=== PATIENT | male | born 1955 | race Caucasian/White ===

== ENCOUNTER 2024-08-18 13:43 | Emergency (ER) | payer MEDICAID ==
[~2024-08-18] VITALS: Ht 182.9 cm; Wt 72.8 kg
[2024-08-18 13:45] VITALS: BP 167/93; PULSE 105; RESP 16; TEMP 99.8; O2SAT 97
--- NOTE | 2024-08-18 14:18 | Physician Documentation ---
History of Present Illness ~ Chief Complaint: Foot pain Stated Complaint: L FOOT PAIN Time Seen by MD: 14:04 Primary Medical Doctor: TRENT Source: patient Mode of Arrival: POV Exam Limitations: no limitations HPI 69 yo male with left foot pain, redness and swelling sp mechanical fall with scrapped foot getting worse. Injury happened 2 weeks ago. denies fever Medication Reconciliation Allergies: Coded Allergies: No Known Allergies (Unverified , 04/10/09) Scheduled Cephalexin*Monohydrate* (Keflex*), 1 CAP PO Q12H Scheduled PRN Ibuprofen (Ibu), 1 TAB PO Q4HPRN PRN for pain Past Medical History Past Medical History: No Pertinent History Past Surgical History: no surgical history Smoking Status: Current every day smoker Lives In: Homeless, Other Occupation: unemployed Review of Systems All Other Systems at this time: Reviewed and Negative Musculoskeletal: Reports: see HPI Physical Exam Vital Signs: RN Vital Signs have been reviewed: Yes, Temperature: 99.8, Source: Temporal, Heart Rate: 105, Respiratory Rate: 16, BP: 167/93, Pulse Oximetry: 97, Weight: 72.850 Physical Exam General: Alert, no apparent distress. HEENT: PERRL, EOMI, no injection, moist mucous membranes. Neck: Full range of motion. Respiratory: Lungs clear, no respiratory distress. Chest: No accessory muscle use. Cardiovascular: Regular rate and rhythm, no murmurs. Extremities: right foot with erythema and swelling, tender to palpate superficial abrasion to dorsal aspect of foot. no deformities Neurologic: Oriented x4. Psychiatric: Normal mood and affect. Skin: Normal color, warm and dry. Progress Results/Orders Results/Orders Completed Orders - BHAVANI MARTINO NP Cephalexin Capsule (Keflex Capsule) (08/18/24 15:30) Vital Signs 08/18/24 13:45 Temp 99.8 Pulse 105 Resp 16 B/P (MAP) 167/93 Pulse Ox 97 EKG/XRAY/CT/US/VASC/MRI Bone/Soft Tissue X-Ray (Ext.) : Additional Comment CLINICAL INDICATION: LEFT FOOT PAIN TECHNIQUE: 3 radiographic views of the left foot were obtained. Comparison: None FINDINGS/IMPRESSION: There is no evidence of acute fracture or dislocation. The visualized joint space is well maintained. The alignment is anatomical. There is no radiopaque foreign body. Medical Decision Making Findings Patient had history of an injury and abrasion with erythema swelling sensation circulation intact x-ray was negative for any osseous abnormality patient will be discharged with antibiotics treated for cellulitis General Diff Dx:Considerations: Include: Abrasion, Fracture, Sprain Foot Diff Dx:Considerations: Include: Abrasion, Arthritis, Cellulitis, Gout, Sprain Departure Time of Disposition: 15:19 Disposition: 01 HOME / SELF CARE / HOMELESS Impression: Primary Impression: Cellulitis Condition: Stable Discharge Instructions: Cellulitis Additional Instructions: wear boot for comfort and take antibiotics as prescribed, ice for comfort and rest. Monitor for new or worsening s/s infection and f/u with primary care Referrals: NO PRIMARY CARE PROVIDER (PCP) Prescriptions Ibuprofen (Ibu) 400 Mg Tablet 1 TAB PO Q4HPRN PRN for pain for 5 Days, #30 TAB 0 Refills NEEDED FOR PAIN Prov: BHAVANI MARTINO NP 08/18/24 Cephalexin*Monohydrate* (Keflex*) 500 Mg Capsule 1 CAP PO Q12H for 10 Days, #20 CAP Prov: BHAVANI MARTINO MECHANICAL INTERN 08/18/24 Education Educated: Patient Educated regarding: diagnosis, treatment, need for follow up Signature Scribe Signature: no scribe Attestation: The note accurately reflects work and decisions made by me.Bhavani Martino - PATRICK 08/18/24 15:27 BHAVANI MARTINO NP Aug 18, 2024 14:18
--- NOTE | 2024-08-18 14:27 | RADIOLOGY REPORT ---
CLINICAL INDICATION: LEFT FOOT PAIN TECHNIQUE: 3 radiographic views of the left foot were obtained. Comparison: None FINDINGS/IMPRESSION: There is no evidence of acute fracture or dislocation. The visualized joint space is well maintained. The alignment is anatomical. There is no radiopaque foreign body.
[2024-08-18] MEDS ORDERED: IBUP-860 PO (15:26)
[2024-08-18] MEDS ORDERED: CEPH-585 PO (15:26)
== END 2024-08-18 16:02 | disposition home or self-care (01) ==
LOC: ER 13:43
DX: S90.812A Abrasion, left foot, initial encounter (principal); L03.116 Cellulitis of left lower limb; F17.200 Nicotine dependence, unspecified, uncomplicated; Z59.00 Homelessness unspecified; Z79.899 Other long term (current) drug therapy; Z56.0 Unemployment, unspecified; W18.39XA Other fall on same level, initial encounter; Y93.89 Activity, other specified; Y92.89 Other specified places as the place of occurrence of the external cause; Y99.8 Other external cause status
CPT/HCPCS: 73630; 99284; L3260

== ENCOUNTER 2024-08-23 17:40 | Emergency (ER) | payer MEDICAID ==
[~2024-08-23] VITALS: Ht 184.2 cm; Wt 96.4 kg
[~2024-08-23 17:40] MED LIST: CEPH-585 PO; IBUP-860 PO
[2024-08-23 17:44] VITALS: TEMP 97.6
--- NOTE | 2024-08-23 19:45 | Physician Documentation ---
History of Present Illness ~ Chief Complaint: Foot pain Stated Complaint: L FOOT PAIN Time Seen by MD: 19:43 Primary Medical Doctor: TRENT Mode of Arrival: POV HPI Patient presents to the emergency room with pain and swelling to his bilateral lower extremities left greater than right. He was seen here five days ago and diagnosed with cellulitis and rooms put on Keflex with no improvement. No fevers. No prior instances of swelling. Denies chest pain or shortness of breath. Tetanus witin 5 years: No (UNSURE) Medication Reconciliation Allergies: Coded Allergies: No Known Allergies (Unverified , 04/10/09) Scheduled Cephalexin*Monohydrate* (Keflex*), 1 CAP PO Q12H Scheduled PRN Ibuprofen (Ibu), 1 TAB PO Q4HPRN PRN for pain Past Medical History Past Medical History: No Pertinent History Past Surgical History: no surgical history Smoking Status: Never smoker Lives In: Homeless, Other Occupation: unemployed Review of Systems ROS All review of systems negative except as per HPI Physical Exam Vital Signs: Temperature: 97.6, Source: Temporal, Heart Rate: 82, Respiratory Rate: 18, BP: 142/61, Pulse Oximetry: 99, Weight: 96.360 Oxygen Flow Rate: 0 Physical Exam General: Patient is awake, alert, oriented x4 in no acute distress Head: Normocephalic and atraumatic. Eyes: Conjunctival normal. EOMI. PERRL. ENT: Mucous membranes moist. Neck: Supple, trachea is midline. Chest: Clear to auscultation bilaterally without rales, rhonchi, or wheezes. There is no accessory muscle use or retractions. Cardiac: RRR without murmurs, gallops, or rubs. Extremities: 2+ pitting edema to bilateral lower extremities left greater than right with associated tenderness to palpation increased erythema bilaterally Progress Results/Orders Results/Orders Orders - BJ FRENCH MD Vl Venous (08/23/24 19:53) Completed Orders - BJ FRENCH MD Tramadol Tablet (Ultram Tablet) (08/23/24 19:55) Cbc/Diff (08/23/24 19:53) PBNP (08/23/24 19:53) BMP (08/23/24 19:53) Hs Troponin I W Calculations (08/23/24 19:53) Vl Venous (08/23/24 19:53) Medications Received in ER Medications (Trade) Dose Ordered Sig/Flor Route PRN Reason Start Time Stop Time Status Last Admin Dose Admin (Ultram tablet) 50 mg ONCE ONCE PO 08/23/24 19:55 08/23/24 19:56 DC 08/23/24 19:59 50 MG Vital Signs 08/23/24 08/23/24 08/23/24 17:44 18:20 19:10 Temp 97.6 Pulse 102 82 Resp 18 18 18 B/P (MAP) 138/90 142/61 (88) Pulse Ox 97 99 O2 Flow Rate 0 Laboratory Tests Test 08/23/24 20:02 White Blood Count 7.9 Red Blood Count 3.93 L Hemoglobin 12.6 L Hematocrit 37.1 L Mean Corpuscular Volume 94.3 Mean Corpuscular Hemoglobin 31.9 H Mean Corpuscular Hemoglobin Concent 33.8 Red Cell Distribution Width 14.0 Platelet Count 178 Mean Platelet Volume 8.0 Neutrophils (%) (Auto) 80.4 H Lymphocytes (%) (Auto) 8.1 L Monocytes (%) (Auto) 8.4 Eosinophils (%) (Auto) 2.4 Basophils (%) (Auto) 0.7 Neutrophils # (Auto) 6.3 Lymphocytes # (Auto) 0.6 L Monocytes # (Auto) 0.7 Eosinophils # (Auto) 0.2 Basophils # (Auto) 0.1 CBC Comment Sodium Level 139 Potassium Level 3.4 L Chloride Level 107 Carbon Dioxide Level 27.1 Anion Gap 5 L Blood Urea Nitrogen 23 H Creatinine 1.11 H Estimated GFR/1.73 m2 66 BUN/Creatinine Ratio 20.7 H Glucose Level 115 H Calcium Level 8.5 Troponin I High Sensitivity 16 Pro-B-Type Natriuretic Peptide 202 H Albumin 3.0 L Chemistry Comments Medical Decision Making Findings Upon re-evaluation patient is erythema improved. Patient presented to the emergency room with pain and erythema to bilateral lower extremities left greater than right. Differentials include but are not limited to cellulitis, lymphedema, Miles's cyst, DVT, vascular insufficiency, renal failure, heart failure therefore emergent labs ordered which is reassuring for no kidney failure or heart failure. That has patient's erythema improved with keeping legs elevated do believe this is related to lymphedema he would not cellulitis. We will treat him with small course of Lasix along with instruc tions to keep feet elevated, salt restriction and compression stockings. ER precautions regarding worsening of symptoms or fevers discussed. Departure Disposition: HOME / SELF CARE / HOMELESS Impression: Primary Impression: Lymphedema Condition: Stable Discharge Instructions: Peripheral Edema Additional Instructions: Keep feet elevated, restrict salt intake, avoid the heat, compression stockings Referrals: NO PRIMARY CARE PROVIDER (PCP) Prescriptions Tramadol HCl (Tramadol HCl) 50 Mg Tablet 1 TAB PO Q12H PRN PRN for pain, #8 TAB Prov: BJ FRENCH MD 08/23/24 Furosemide* (Lasix*) 20 Mg Tablet 1 TAB PO BID, #6 TAB Prov: BJ FRENCH MD 08/23/24 Education Educated: Patient Educated regarding: diagnosis, treatment, need for follow up Signature Scribe Signature: No scribe Attestation: The note accurately reflects work and decisions made by me.Bj French MD 08/23/24 21:27 BJ FRENCH MD Aug 23, 2024 19:45
[2024-08-23 20:10] LABS: MEAN PLATELET VOLUME 8.0 FL (7.4-10.4); RED CELL DISTRIBUTION WIDTH 14.0 % (11.5-14.5)
[2024-08-23 20:33] LABS: CREATININE 1.11 MG/DL (0.60-1.10); PRO BRAIN NATRIURETIC PEPTIDE 202 PG/ML (0-125); TOTAL CARBON DIOXIDE 27.1 MMOL/L (24-32); eCRCL 72 ML/MIN; eGFR 66 ML/MIN
--- NOTE | 2024-08-23 21:18 | VASCULAR REPORT ---
LEFT LOWER EXTREMITY VENOUS DUPLEX REASON FOR EXAMINATION: Left lower extremity pain and edema. Left calf swelling. Pain. COMPARISON: None TECHNIQUE: Using real-time freeze-frame technique with a high-frequency transducer, multiple longitu dinal and transverse sections were obtained. Simultaneous color flow and spectral Doppler imaging wa s performed. FINDINGS: There is good visualization of the deep venous system with no intraluminal filling defects identified. Normal venous compressibility is seen and there is flow augmentation. The contralateral (right) common femoral vein is compressible and free of intraluminal thrombus and demonstrates abel l flow and augmentation. Color flow Doppler imaging is unremarkable. The left greater saphenous vein was also studied and was compressible and free of intraluminal thromb us. There is edema within the soft tissues of the left calf. IMPRESSION: NO EVIDENCE OF DEEP VENOUS THROMBOSIS.
[2024-08-23] MEDS ORDERED: TRAM50TA2 PO (21:26)
[2024-08-23] MEDS ORDERED: FURO-150 PO (21:26)
[2024-08-23 21:45] VITALS: BP 134/82; PULSE 84; RESP 18; O2SAT 100
== END 2024-08-23 21:47 | disposition home or self-care (01) ==
LOC: ER 18:47
DX: I89.0 Lymphedema, not elsewhere classified (principal); M79.672 Pain in left foot; Z59.00 Homelessness unspecified; Z79.899 Other long term (current) drug therapy; Z56.0 Unemployment, unspecified
CPT/HCPCS: 36415; 80048; 83880; 84484; 85025; 93971; 99284

== ENCOUNTER 2024-08-27 09:45 | Emergency (ER) | payer MEDICAID ==
[~2024-08-27] VITALS: Ht 182.9 cm; Wt 85.0 kg
[~2024-08-27 09:45] MED LIST changes: +FURO-150 PO; +TRAM50TA2 PO
[2024-08-27 09:55] VITALS: TEMP 99
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
--- NOTE | 2024-08-27 10:28 | ELECTROCARDIOGRAPH REPORT ---
[facility] Test Date: 2024-08-27 Test Time: 10:26:00 Pat Name: ELHAM TUTTLE Department: [facility]- Patient ID: [id number] Room: Gender: M Development Executive: : 1955 Requested By: JAYDE WHALEN Order Number: [id number] Reading MD: Dr. Vu Moody Measurements Intervals [place] Rate: 86 P: 85 DE: 50 QRS: 77 QRSD: 95 T: 64 QT: 390 QTc: 467 Interpretive Statements Sinus rhythm Ventricular premature complex Short DE interval Abnormal R-wave progression, early transition Electronically Signed On 08-30-2024 19:16:[address] Vu Moody Please click the below link to view image of tracing.
[2024-08-27 10:47] LABS: MEAN PLATELET VOLUME 8.2 FL (7.4-10.4); RED CELL DISTRIBUTION WIDTH 13.8 % (11.5-14.5)
--- NOTE | 2024-08-27 10:49 | RADIOLOGY REPORT ---
CHEST RADIOGRAPH Indication: CP Technique: Single frontal view of the chest was obtained COMPARISON: None FINDINGS: Lines and Tubes: None Lungs: Clear Pleura: No effusion. No pneumothorax. Cardiomediastinal contours: Unremarkable Bones: Unremarkable IMPRESSION: No acute disease.
[2024-08-27 11:08] LABS: CREATININE 1.20 MG/DL (0.60-1.10); PRO BRAIN NATRIURETIC PEPTIDE 119 PG/ML (0-125); TOTAL CARBON DIOXIDE 25.7 MMOL/L (24-32); eCRCL 66 ML/MIN; eGFR 60 ML/MIN
[2024-08-27] MEDS ORDERED: SULF1TAB49 PO (12:24)
[2024-08-27 12:47] VITALS: BP 143/82; PULSE 89; RESP 18; O2SAT 98
== END 2024-08-27 13:08 | disposition home or self-care (01) ==
LOC: ER 09:45
DX: L03.116 Cellulitis of left lower limb (principal); I87.2 Venous insufficiency (chronic) (peripheral); R06.02 Shortness of breath
CPT/HCPCS: 36415; 71045; 80048; 83880; 84484; 85025; 93005; 99285; A6449

== ENCOUNTER 2024-09-19 16:15 | Emergency (ER) | payer MEDICARE, MEDICAID ==
[~2024-09-19] VITALS: Ht 185.4 cm; Wt 102.3 kg
[~2024-09-19 16:15] MED LIST changes: -CEPH-585 PO
[2024-09-19 16:23] VITALS: TEMP 98.1
[2024-09-19] MEDS ORDERED: FURO-150 PO (19:47)
--- NOTE | 2024-09-19 19:47 | Physician Documentation ---
History of Present Illness ~ Chief Complaint: Leg Pain Stated Complaint: FOOT PAIN Time Seen by MD: 19:33 Primary Medical Doctor: TRENT CERRATO Patient presents to the emergency room with continued bilateral lower extremity edema. Upon review of old records he has been seen for this complaint since 2009. He has been treated with multiple rounds of antibiotics and reports Lasix helping any in his well. He reports that has admitted to the hospital fairly recently and said that the swelling in his legs was almost gone after receiving IV Lasix but returned after they discharged him. He does not have a primary care. He uses a wheelchair and has been trying to keep his legs elevated as much as possible. Denies fevers or traumas. Tetanus witin 5 years: No (UNSURE) Medication Reconciliation Allergies: Coded Allergies: No Known Allergies (Unverified , 09/19/24) Scheduled Furosemide* (Lasix*), 1 TAB PO BID Scheduled PRN Ibuprofen (Ibu), 1 TAB PO Q4HPRN PRN for pain Tramadol HCl (Tramadol HCl), 1 TAB PO Q12H PRN PRN for pain Past Medical History Past Medical History: No Pertinent History Past Surgical History: no surgical history Lives In: Homeless, Other Occupation: unemployed Review of Systems ROS All review of systems negative except as per HPI Physical Exam Vital Signs: Temperature: 98.1, Source: Temporal, Heart Rate: 88, Respiratory Rate: 20, BP: 129/82, Pulse Oximetry: 97, Weight: 102.270 Oxygen Flow Rate: 0 Physical Exam General: Patient is awake, alert, oriented x4 in no acute distress Head: Normocephalic and atraumatic. Eyes: Conjunctival normal. EOMI. PERRL. ENT: Mucous membranes moist. Neck: Supple, trachea is midline. Chest: Clear to auscultation bilaterally without rales, rhonchi, or wheezes. There is no accessory muscle use or retractions. Cardiac: RRR without murmurs, gallops, or rubs. Extremities: Moderate bilateral lower extremity edema with some erythema bilaterally however no increased warmth to touch Progress Results/Orders Results/Orders Vital Signs 09/19/24 16:23 Temp 98.1 Pulse 88 Resp 20 B/P (MAP) 129/82 Pulse Ox 97 O2 Flow Rate 0 Medical Decision Making Findings Patient presents to the emergency room with bilateral lower extremity edema and erythema. Differentials include but are not limited to cellulitis, DVT, venous insufficiency, kidney failure, congestive heart failure. Reviewing patient's previous history he has had workup and treatment for this multiple times. He has received multiple rounds of antibiotics. Given his report of improvement with Lasix I strongly suspect venous insufficiency which was discussed with the patient and we will treat him as such. I do not feel he is suffering from bilateral lower extremity cellulitis or DVT and I do not feel he requires investigation into these. He has had investigation into these previously with negative results. Departure Disposition: HOME / SELF CARE / HOMELESS Impression: Primary Impression: Venous insufficiency Condition: Stable Discharge Instructions: Chronic Venous Insufficiency Additional Instructions: Avoid the heat, salt restriction, keep legs elevated, compression stockings. Follow up with the hope than to establish care. Referrals: NO PRIMARY CARE PROVIDER (PCP) Prescriptions Furosemide* (Lasix*) 20 Mg Tablet 1 TAB PO DAILY, #4 TAB Prov: BJ FRENCH MD 09/19/24 Education Educated: Patient Educated regarding: diagnosis, treatment, need for follow up Signature Scribe Signature: No scribe Attestation: The note accurately reflects work and decisions made by me.Bj French MD 09/19/24 19:48 BJ FRENCH MD Sep 19, 2024 19:47
[2024-09-19] MEDS: HYDROcodone/acetaminophen 5mg/325mg tablet PO ONE (20:11)
[2024-09-19] MEDS: ondansetron 4mg rapidly disintigrating tab PO ONE (20:11)
[2024-09-19 20:14] VITALS: BP 158/98; PULSE 99; RESP 18; O2SAT 98
== END 2024-09-19 20:15 | disposition home or self-care (01) ==
LOC: ER 16:16
DX: I87.2 Venous insufficiency (chronic) (peripheral) (principal); Z79.899 Other long term (current) drug therapy; Z56.0 Unemployment, unspecified; Z59.00 Homelessness unspecified
CPT/HCPCS: 99284

== ENCOUNTER 2024-10-01 10:10 | Emergency (ER) | payer MEDICARE, MEDICAID ==
[~2024-10-01] VITALS: Ht 185.4 cm; Wt 81.0 kg
[~2024-10-01 10:10] MED LIST changes: -TRAM50TA2 PO
[2024-10-01 10:16] VITALS: BP 146/92; PULSE 90; O2SAT 97
[2024-10-01] MEDS ORDERED: NO HOME MEDS (10:21)
--- NOTE | 2024-10-01 10:39 | ELECTROCARDIOGRAPH REPORT ---
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
--- NOTE | 2024-10-01 10:41 | Physician Documentation ---
History of Present Illness ~ Chief Complaint: Extremity Swelling Stated Complaint: FEET BLISTERS Time Seen by MD: 10:21 Primary Medical Doctor: TRENT Source: patient, EMS, EMS notes reviewed Mode of Arrival: EMS Exam Limitations: no limitations HPI Chief Complaint: Painful legs and swelling Caveat: None Independent Historians: Paramedics History of Present Illness: Patient is a 69-year-old man brought in by paramedics for lower extremity swelling and pain. This began three days ago. Patient was seen two days ago at [facility] and given Lasix and discharged. Patient states that the pain is more severe. Patient had a fall two days ago landing on his left side. Patient complains of severe left rib pain. Pain is worse with cough or sneezing. No fever. No shortness a breath. No chest pain. Patient also states that he has developed blisters on the back of his left heel and foot. Medical records reviewed: Last ER visit here was September 19 for the same complaints. Review of systems: All systems were reviewed and are negative except for what is indicated in the history of present illness. Past Medical History: Lymphedema Past Surgical History: None Social History: Tobacco use, homeless Medications: Reviewed as documented Nursing Notes Allergies: Reviewed as documented in Nursing Notes Tetanus witin 5 years: No Medication Reconciliation Allergies: Coded Allergies: No Known Allergies (Unverified , 10/01/24) Miscellaneous Medications Home Med List (No Home Medications), (Reported) Discontinued Medications Furosemide* (Lasix*), 1 TAB PO DAILY Discontinued Reason: patient no longer taking Ibuprofen (Ibu), 1 TAB PO Q4HPRN PRN for pain Discontinued Reason: patient no longer taking Past Medical History Past Medical History: No Pertinent History Past Surgical History: no surgical history Lives In: Homeless, Other Occupation: unemployed Review of Systems All Other Systems at this time: Reviewed and Negative ROS Patient denies any other acute symptoms other than above. All other systems are negative Physical Exam Vital Signs: RN Vital Signs have been reviewed: Yes, Temperature: 98.3, Source: Oral, Heart Rate: 90, Respiratory Rate: 16, BP: 146/92, Pulse Oximetry: 97, Weight: 81.000 Pulse Oximetry Reflects: adequate oxygenation Physical Exam General Appearance: Mild distress, chronically ill-appearing HEENT: Normal OP, moist oral mucosa, PERRL, EOMI Neck: supple, normal ROM, trachea midline Pulmonary: No respiratory distress, CTA, BS equal Cardiac: RRR, no murmur, rub or gallop, GI: nondistended, soft, nontender, normal bowel sounds, no guarding, no rebound Chest: Left lateral rib tenderness, no crepitus Extremities: normal ROM, diffuse lower extremity edema from the knees down. Edema is tense. No erythema. Blister over the back of the left heel. Skin: intact, dry, warm, no rashes, see extremity exam above Neuro: AAOx3, speech is clear, no focal motor weakness Psych: normal affect, good eye contact, no apparent hallucination, normal speech Progress Results/Orders Results/Orders Orders - ROSS LEONARD MD Chest,Single View (10/01/24 10:21) Saline Lock (10/01/24 10:21) Monitor (10/01/24 10:21) Completed Orders - ROSS LEONARD MD Cbc/Diff (10/01/24 10:21) MG (10/01/24 10:21) Electrocardiogram (10/01/24 10:21) PBNP (10/01/24 10:21) Chest,Single View (10/01/24 10:21) Hs Troponin I W Calculations (10/01/24 10:21) Hs Troponin I W Calculations (10/01/24 12:21) CMP (10/01/24 10:21) Furosemide Inj (Lasix Inj) (10/01/24 12:10) Hydrocodone/Apap 10/325 ([place] 10/325mg (10/01/24 12:10) Medications Received in ER Medications (Trade) Dose Ordered Sig/Flor Route PRN Reason Start Time Stop Time Status Last Admin Dose Admin (Lasix inj) 60 mg ONCE ONCE IV 10/01/24 12:10 10/01/24 12:11 DC 10/01/24 12:10 60 MG ([place] 10/325mg tab) 1 tab ONCE ONCE PO 10/01/24 12:10 10/01/24 12:11 DC 10/01/24 12:16 1 TAB Vital Signs 10/01/24 10/01/24 10/01/24 10/01/24 10:11 10:16 10:22 12:16 Temp 98.3 98.3 Pulse 85 90 Resp 16 21 16 12 B/P (MAP) 138/84 146/92 (110) Pulse Ox 97 97 10/01/24 10/01/24 12:39 12:58 Temp 98.3 Resp 12 B/P (MAP) Laboratory Tests Test 10/01/24 10:33 10/01/24 12:05 White Blood Count 6.7 Red Blood Count 3.88 L Hemoglobin 12.3 L Hematocrit 36.2 L Mean Corpuscular Volume 93.2 Mean Corpuscular Hemoglobin 31.7 H Mean Corpuscular Hemoglobin Concent 34.0 Red Cell Distribution Width 13.7 Platelet Count 195 Mean Platelet Volume 8.0 Neutrophils (%) (Auto) 77.4 H Lymphocytes (%) (Auto) 10.9 L Monocytes (%) (Auto) 10.3 Eosinophils (%) (Auto) 0.7 Basophils (%) (Auto) 0.7 Neutrophils # (Auto) 5.2 Lymphocytes # (Auto) 0.7 L Monocytes # (Auto) 0.7 Eosinophils # (Auto) 0.0 Basophils # (Auto) 0.0 CBC Comment Sodium Level 137 Potassium Level 3.4 L Chloride Level 100 Carbon Dioxide Level 28.2 Anion Gap 9 Blood Urea Nitrogen 16 Creatinine 1.15 H Estimated GFR/1.73 m2 63 BUN/Creatinine Ratio 13.9 Glucose Level 130 H Calcium Level 8.7 Magnesium Level 1.8 Total Bilirubin 0.7 Aspartate Amino Transf (AST/SGOT) 66 H Alanine Aminotransferase (ALT/SGPT) 38 Alkaline Phosphatase 99 Troponin I High Sensitivity 10 11 Pro-B-Type Natriuretic Peptide 311 H Total Protein 6.7 Albumin 3.2 L Globulin 3.5 Albumin/Globulin Ratio 0.9 L Chemistry Comments Troponin I High Sens Percent Delta 10 Troponin I Hi Sens Absolute Change 1 Medical Decision Making Additional info obtained from: old records Findings Differential diagnosis includes but is not limited to: Lymphedema, congestive heart failure, acute kidney injury EKG independent interpretation: At 10:37 a.m.. Normal sinus rhythm, multiple PVCs, normal axis, normal ST segments Chest x-ray, single view, indication: Peripheral edema Independent interpretation: Lungs are clear, normal mediastinum, normal cardiac silhouette. No acute cardiopulmonary process. Laboratory data independent interpretation: CBC: Unremarkable, moderate anemia with a hemoglobin of 12.3 CMP: Creatinine mildly elevated at 1.15, otherwise unremarkable. AST elevated at 66, troponin normal at 10, pro BNP mildly elevated at 311 Emergency department course/medical decision-making: In his a 69-year-old man who presents with lower extremity swelling and pain. Patient has lymphedema. No evidence of secondary cellulitis. Patient is given Lasix 80 mg IV. Patient does not meet any admission criteria. Patient has diuresed. Patient has prescription for Lasix. Patient is stable for discharge. Departure Time of Disposition: 12:09 Disposition: 01 HOME / SELF CARE / HOMELESS Impression: Primary Impression: Lymphedema Condition: Stable Discharge Instructions: Lymphedema Additional Instructions: FOLLOW UP WITH [facility] FOR CONTINUED CARE. TAKE THE LASIX YOU WERE PRESCRIBED FROM [facility]. Referrals: NO PRIMARY CARE PROVIDER (PCP) Education Educated: Patient Educated regarding: diagnosis, treatment, need for follow up Signature Scribe Signature: No scribe Attestation: No scribe ROSS LEONARD MD Oct 01, 2024 10:41
[2024-10-01 10:50] LABS: MEAN PLATELET VOLUME 8.0 FL (7.4-10.4); RED CELL DISTRIBUTION WIDTH 13.7 % (11.5-14.5)
--- NOTE | 2024-10-01 10:59 | RADIOLOGY REPORT ---
CHEST RADIOGRAPH Indication: CP Technique: Single frontal view of the chest was obtained COMPARISON: DI CHEST,SINGLE VIEW on DOS: 08/27/24 FINDINGS: Lines and Tubes: None Lungs: Clear Pleura: No effusion. No pneumothorax. Cardiomediastinal contours: Unremarkable Bones: Unremarkable IMPRESSION: No acute disease.
[2024-10-01 11:04] LABS: CREATININE 1.15 MG/DL (0.60-1.10); PRO BRAIN NATRIURETIC PEPTIDE 311 PG/ML (0-125); TOTAL CARBON DIOXIDE 28.2 MMOL/L (24-32); eCRCL 70 ML/MIN; eGFR 63 ML/MIN
[2024-10-01] MEDS: furosemide 10 MG/1 ML 10ml inj IV ONE (12:10)
[2024-10-01] MEDS: HYDROcodone/acetaminophen 10/325mg tab PO ONE (12:16)
[2024-10-01 12:39] VITALS: RESP 12
[2024-10-01 12:58] VITALS: TEMP 98.3
== END 2024-10-01 13:00 | disposition home or self-care (01) ==
LOC: ER 10:10
DX: I89.0 Lymphedema, not elsewhere classified (principal); Z59.00 Homelessness unspecified; R07.81 Pleurodynia; R06.7 Sneezing; R06.02 Shortness of breath
CPT/HCPCS: 36415; 71045; 80053; 83735; 83880; 84484; 85025; 93005; 96374; 99285; J1938

== ENCOUNTER 2024-10-29 23:12 | Emergency (ER) | payer MEDICARE, MEDICAID ==
[~2024-10-29] VITALS: Ht 188 cm; Wt 97.7 kg
[~2024-10-29 23:12] MED LIST changes: -FURO-150 PO; -IBUP-860 PO; +NO HOME MEDS
--- NOTE | 2024-10-29 23:40 | ELECTROCARDIOGRAPH REPORT ---
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
--- NOTE | 2024-10-29 23:55 | RADIOLOGY REPORT ---
CHEST RADIOGRAPH Indication: N Technique: Single frontal view of the chest was obtained COMPARISON: DI CHEST,SINGLE VIEW on DOS: 10/01/24, DI CHEST,SINGLE VIEW on DOS: 08/27/24 FINDINGS: Lungs and pleural spaces are clear. Cardiac silhouette and kennedi are within normal limits. Bones and soft tissues demonstrate no significant abnormality. IMPRESSION: 1. No acute disease.
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
[2024-10-30 00:06] LABS: MEAN PLATELET VOLUME 8.3 FL (7.4-10.4); RED CELL DISTRIBUTION WIDTH 14.6 % (11.5-14.5)
[2024-10-30 00:20] LABS: CREATININE 0.99 MG/DL (0.60-1.10); PRO BRAIN NATRIURETIC PEPTIDE 263 PG/ML (0-125); TOTAL CARBON DIOXIDE 25.0 MMOL/L (24-32); eCRCL 84 ML/MIN; eGFR 75 ML/MIN
[2024-10-30 00:43] VITALS: BP 174/96; PULSE 96; RESP 18; TEMP 98.6; O2SAT 98
== END 2024-10-30 00:45 ==
LOC: ER 23:12
DX: Z02.89 Encounter for other administrative examinations (principal); R03.0 Elevated blood-pressure reading, without diagnosis of hypertension; I49.8 Other specified cardiac arrhythmias; Z56.0 Unemployment, unspecified; Z59.00 Homelessness unspecified
CPT/HCPCS: 36415; 71045; 80048; 83880; 85025; 93005; 99285